=== PATIENT | female | born 1995 | race Caucasian/White ===

== ENCOUNTER 2021-03-19 13:52 | Emergency (ER) | payer MEDICAID ==
[~2021-03-19] VITALS: Ht 162.6 cm; Wt 85.0 kg
[2021-03-19 20:54] LABS: CLARITY URINE TURBID (CLEAR); COLOR URINE DARK YELLOW (YELLOW); KETONES URINE 2+ (NEGATIVE); LEUKOCYTE ESTERASE URINE TRACE (NEGATIVE); NITRITE URINE NEGATIVE (NEGATIVE); OCCULT BLOOD URINE NEGATIVE (NEGATIVE); PH URINE 5.5 (4.5-8.0); PROTEIN URINE TRACE (NEGATIVE); SPECIFIC GRAVITY URINE 1.029 (1.005-1.030)
[2021-03-19] MEDS ORDERED: FAMOTIDINE 20MG TABLET PO ONE (21:00)
[2021-03-19] MEDS ORDERED: ONDANSETRON 4MG ODT PO ONE (21:00)
[2021-03-19 22:10] LABS: BASOPHILS % 0.6 % (0.0-2.0); EOSINOPHILS % 1.9 % (0.0-5.0); HEMATOCRIT. 37.5 % (36.0-48.0); LYMPHOCYTES % 15.6 % (20.0-50.0); MEAN CORPUSCULAR HEMOGLOBIN 29.5 pg (28.0-32.0); MEAN CORPUSCULAR VOLUME 85.3 fL (81.0-99.0); MEAN PLATELET VOLUME 7.8 fl (7.4-10.4); MONOCYTES % 6.2 % (2.0-8.0); NEUTROPHILS % 75.7 % (40.0-76.0); PLATELET 367 x1000/uL (130-400); RED CELL DISTRIBUTION WIDTH 14.1 % (11.6-14.6)
[2021-03-19 22:13] LABS: CHLORIDE 106 mEq/L (98-107)
[2021-03-19 22:19] LABS: INR 1.1; PROTHROMBIN TIME 11.5 sec (9.6-11.0)
[2021-03-19] MEDS ORDERED: POTASSIUM CHLORIDE 20MEQ TABLET SR PO NR (22:30)
[2021-03-19 22:47] LABS: B-HCG QUANTITATIVE 72034 mIU/mL (<3)
[2021-03-19] MEDS ORDERED: VISCOUS LIDOCAINE 2% 15 ML UDC PO STA (22:48)
[2021-03-19] MEDS ORDERED: MAGNESIUM/ALUMINUM HYDROXIDE/SIMETHICONE 30ML UDC PO STA (22:48)
[2021-03-19] MEDS ORDERED: ONDA4TAB5 MT (22:50)
[2021-03-19] MEDS ORDERED: NITR-87 MT (23:09)
[2021-03-20 00:35] LABS: HCG SCREEN POSITIVE
[2021-03-20 02:50] VITALS: BP 121/80
== END 2021-03-20 02:51 | disposition home or self-care (01) ==
LOC: ER 13:52
DX: O20.0 Threatened abortion (principal); O23.41 Unspecified infection of urinary tract in pregnancy, first trimester; Z3A.01 Less than 8 weeks gestation of pregnancy
CPT/HCPCS: 36415; 76805; 76810; 80053; 81003; 81025; 83690; 84702; 84703; 85025; 85610; 86850; 86900; 86901; 99284; Q0162

== ENCOUNTER 2021-05-21 00:10 | Emergency (ER) | payer MEDICAID ==
[~2021-05-21] VITALS: Ht 162.6 cm; Wt 89.7 kg
[~2021-05-21 00:10] MED LIST: NITR-87 MT; ONDA4TAB5 MT
[2021-05-21 00:21] VITALS: BP 119/81
== END 2021-05-21 01:31 | disposition left against medical advice (07) ==
LOC: ER 00:10
DX: Z53.21 Procedure and treatment not carried out due to patient leaving prior to being seen by health care provider (principal); Z98.890 Other specified postprocedural states

== ENCOUNTER 2022-11-26 21:10 | Emergency (ER) | payer MEDICAID ==
[~2022-11-26] VITALS: Ht 162.6 cm; Wt 79.3 kg
[2022-11-26 21:33] VITALS: BP 118/68
[2022-11-26] MEDS ORDERED: DIPH25CA83 MT (22:38)
[2022-11-26] MEDS ORDERED: P20 MT (22:38)
[2022-11-26] MEDS ORDERED: DIPHENHYDRAMINE 50MG/ML VIAL IM ONE (22:45)
[2022-11-26] MEDS ORDERED: METHYLPREDNISOLONE SOD SUCC 125 MG/2 ML VIAL IM ONE (22:45)
== END 2022-11-26 22:54 | disposition home or self-care (01) ==
LOC: ER 21:10
DX: T78.40XA Allergy, unspecified, initial encounter (principal); X58.XXXA Exposure to other specified factors, initial encounter
CPT/HCPCS: 96372; 99284; J1200; J2930; Z7610